=== PATIENT | male | born 1960 | race Caucasian/White ===

== ENCOUNTER 2020-03-30 11:33 | Outpatient (RCR) | payer MEDICARE, SELFPAY | END 2020-03-30 23:59 | disposition home or self-care (01) | LOC: ANHAUDIO 11:33 | PROVIDERS: PCP Emergency Medicine; Visit Provider Emergency Medicine | DX: Z46.1 Encounter for fitting and adjustment of hearing aid (principal) | CPT/HCPCS: 92592 ==